=== PATIENT | female | born 1945 | race Caucasian/White ===

== ENCOUNTER 2022-01-13 10:17 | Day surgery (SDC) | payer MEDICARE ==
[2022-01-13] MEDS ORDERED: Propofol 200 MG/20 ML SDV IV ONE (10:18)
[2022-01-13] MEDS ORDERED: Sodium Chloride 0.9% 10 ML Syringe FLUSH PRN (10:30)
[2022-01-13] MEDS: Lactated Ringers 1,000 ML IV SCH (10:39)
[2022-01-13] MEDS ORDERED: Propofol 200 MG/20 ML SDV ONE ×2 (10:46→11:26)
[2022-01-13] MEDS ORDERED: Midazolam 1 MG/ML 2 ML SDV ONE (10:46)
[2022-01-13 12:51] VITALS: BP 164/65; PULSE 61
== END 2022-01-13 13:13 | disposition home or self-care (01) ==
LOC: KA.SDS 10:17
PROVIDERS: ATTEND Surgery
DX: D12.2 Benign neoplasm of ascending colon (principal); F41.9 Anxiety disorder, unspecified; I10 Essential (primary) hypertension; E78.5 Hyperlipidemia, unspecified; K21.9 Gastro-esophageal reflux disease without esophagitis; H90.5 Unspecified sensorineural hearing loss; D64.9 Anemia, unspecified; Z88.8 Allergy status to other drugs, medicaments and biological substances; Z88.0 Allergy status to penicillin; Z91.040 Latex allergy status; Z79.899 Other long term (current) drug therapy; Z98.890 Other specified postprocedural states
CPT/HCPCS: J2250; J2704; J7120

== ENCOUNTER 2022-02-11 16:50 | Emergency (ER) | payer MEDICARE ==
[2022-02-11] MEDS ORDERED: Sodium Chloride 0.9% 10 ML Syringe FLUSH PRN (16:59)
[2022-02-11 18:00] LABS: ANION GAP 13.1 mmol/L (5-15); CHLORIDE,CL 106 mmol/L (98-107); SODIUM,NA 144 mmol/L (136-145)
[2022-02-11] MEDS ORDERED: Hydrochlorothiazide 25 MG Tab PO ONE (18:54)
[2022-02-11 19:07] VITALS: BP 145/81; PULSE 65
== END 2022-02-11 19:26 | disposition home or self-care (01) ==
LOC: KA.ED 16:50
DX: F41.9 Anxiety disorder, unspecified (principal); E87.6 Hypokalemia; I10 Essential (primary) hypertension; R79.89 Other specified abnormal findings of blood chemistry; E78.00 Pure hypercholesterolemia, unspecified; Z88.0 Allergy status to penicillin; Z88.1 Allergy status to other antibiotic agents; Z79.899 Other long term (current) drug therapy
CPT/HCPCS: 36415; 71045; 80053; 83880; 84484; 85025; 93005; 93010; 99284; 99285-25; A9270-GY

== ENCOUNTER 2022-03-14 17:22 | Emergency (ER) | payer MEDICARE ==
[2022-03-14] MEDS: cloNIDine 0.1 MG Tab PO ONE (18:26)
[2022-03-14 18:28] LABS: ANION GAP 11.4 mmol/L (5-15); CHLORIDE,CL 105 mmol/L (98-107); SODIUM,NA 141 mmol/L (136-145)
[2022-03-14] MEDS: Losartan 50 MG Tab PO ONE (18:36)
[2022-03-14] MEDS: Labetalol 100 MG/20 ML MDV IVPUSH ONE (18:38)
[2022-03-14] MEDS: Sodium Chloride 0.9% 500 ML IV ONE (20:23)
[2022-03-14 21:55] VITALS: BP 125/48; PULSE 47
== END 2022-03-14 22:00 | disposition home or self-care (01) ==
LOC: KA.ED 17:22
DX: R00.1 Bradycardia, unspecified (principal); I10 Essential (primary) hypertension; E78.00 Pure hypercholesterolemia, unspecified; K21.9 Gastro-esophageal reflux disease without esophagitis; Z88.1 Allergy status to other antibiotic agents; Z88.0 Allergy status to penicillin; Z91.040 Latex allergy status; Z79.899 Other long term (current) drug therapy
CPT/HCPCS: 36415; 80048; 83735; 84484; 85025; 99283-25; 99284; A9270-GY; J3490; J7030

== ENCOUNTER 2024-12-25 11:36 | Emergency (ER) | payer MEDICARE ==
[2024-12-25 12:06] LABS: BASOPHILS ABSOLUTE AUTO 0.04 10^3/uL (0.00-0.10); BASOPHILS PERCENT AUTO 0.5 % (0.0-1.0); EOSINOPHILS ABSOLUTE AUTO 0.13 10^3/uL (0.10-0.30); EOSINOPHILS PERCENT AUTO 1.8 % (1.0-3.0); HEMATOCRIT 42.7 % (37.0-47.0); HEMOGLOBIN 14.1 g/dL (12.0-16.0); LYMPHOCYTES ABSOLUTE AUTO 2.86 10^3/uL (1.00-4.00); LYMPHOCYTES PERCENT AUTO 38.8 % (20.0-40.0); MEAN CORPUSCULAR HEMOGLOBIN 30.6 pg (27.0-31.0); MEAN CORPUSCULAR VOLUME 92.6 fL (82.0-92.0); MEAN PLATELET VOLUME 11.3 fL (7.4-10.4); MONOCYTES ABSOLUTE AUTO 1.03 10^3/uL (0.10-0.80); NEUTROPHILS ABSOLUTE AUTO 3.32 10^3/uL (2.50-7.00); NEUTROPHILS PERCENT AUTO 44.9 % (50.0-70.0); PLATELET COUNT,PLT 165 10^3/uL (150-400); RED BLOOD CELL COUNT 4.61 10^6/uL (3.80-5.50); RED CELL DISTRIBUTION WIDTH 12.3 % (11.5-14.5); WHITE BLOOD CELL COUNT,WBC 7.38 10^3/uL (5.00-10.00)
[2024-12-25 12:24] LABS: ALANINE AMINOTRANSFERASE,ALT 22 U/L (14-63); ALBUMIN 4.25 g/dL (3.40-5.00); ALKALINE PHOSPHATASE 50 U/L (46-116); ANION GAP 13.2 mmol/L (5-15); ASPARTATE AMNIOTRANSFERASE,AST 18 U/L (15-37); BILIRUBIN TOTAL 0.4 mg/dL (0.2-1.0); BLOOD UREA NITROGEN,BUN 18 mg/dL (7-18); CARBON DIOXIDE,CO2 30.5 mmol/L (21.0-32.0); CHLORIDE,CL 101 mmol/L (98-107); CREATININE 0.71 mg/dL (0.51-1.17); ESTIMATED GFR 87 mL/min (>=60); GLUCOSE RANDOM 113 mg/dL (70-140); POTASSIUM,K 3.7 mmol/L (3.5-5.1); PROTEIN TOTAL,TP 8.2 g/dL (6.4-8.2); SODIUM,NA 141 mmol/L (136-145)
[2024-12-25 12:28] LABS: PROTHROMBIN TIME 10.4 SEC (9.1-12.0)
[2024-12-25] MEDS: hydrALAZINE 20 MG/ML SDV IVPUSH ONE ×2 (12:43→15:55)
[2024-12-25 13:00] LABS: APPEARANCE,URINE CLEAR (CLEAR); BILIRUBIN,URINE NEGATIVE (NEGATIVE); COLOR,URINE YELLOW (YELLOW); GLUCOSE,URINE NEGATIVE (NEGATIVE); KETONES,URINE NEGATIVE (NEGATIVE); LEUKOCYTE ESTERASE,URINE NEGATIVE (NEGATIVE); NITRITE,URINE NEGATIVE (NEGATIVE); OCCULT BLOOD,URINE NEGATIVE (NEGATIVE); PROTEIN,URINE NEGATIVE (NEGATIVE); UROBILINOGEN,URINE 0.2 E.U./dL (0.2-1.0)
[2024-12-25 13:01] LABS: BACTERIA,URINE RARE /HPF (NONE TO FEW); EPITHELIAL CELLS,URINE RARE /LPF; RBC,URINE 0-5 /HPF (0-5); WBC,URINE 0-5 /HPF (0-5)
[2024-12-25 15:53] VITALS: BP 143/88; PULSE 76
== END 2024-12-25 14:48 | disposition home or self-care (01) ==
LOC: KA.ED 11:36
DX: I10 Essential (primary) hypertension (principal); E78.00 Pure hypercholesterolemia, unspecified; Z88.1 Allergy status to other antibiotic agents; Z91.040 Latex allergy status; Z88.8 Allergy status to other drugs, medicaments and biological substances; Z88.0 Allergy status to penicillin; Z79.899 Other long term (current) drug therapy; Z86.16 Personal history of COVID-19
CPT/HCPCS: 36415; 71045; 80053; 81001; 84484; 85025; 85610; 93005; 93010; 96374; 99284; 99285-25; J0360

== ENCOUNTER 2024-12-25 17:48 | Inpatient (IN) | payer MEDICARE ==
[2024-12-25 18:30] LABS: BASOPHILS ABSOLUTE AUTO 0.05 10^3/uL (0.00-0.10); BASOPHILS PERCENT AUTO 0.6 % (0.0-1.0); EOSINOPHILS ABSOLUTE AUTO 0.14 10^3/uL (0.10-0.30); EOSINOPHILS PERCENT AUTO 1.6 % (1.0-3.0); HEMATOCRIT 40.9 % (37.0-47.0); HEMOGLOBIN 13.7 g/dL (12.0-16.0); IMMATURE GRAN ABSOLUTE AUTO 0.01 10^3/uL (0.00-0.04); IMMATURE GRAN PERCENT AUTO 0.1 % (0.0-0.4); LYMPHOCYTES ABSOLUTE AUTO 3.05 10^3/uL (1.00-4.00); LYMPHOCYTES PERCENT AUTO 35.2 % (20.0-40.0); MEAN CORPUSCULAR HEMOGLOBIN 30.8 pg (27.0-31.0); MEAN CORPUSCULAR HGB CONC 33.5 g/dL (32.0-36.0); MEAN CORPUSCULAR VOLUME 91.9 fL (82.0-92.0); MEAN PLATELET VOLUME 11.2 fL (7.4-10.4); MONOCYTES ABSOLUTE AUTO 1.19 10^3/uL (0.10-0.80); MONOCYTES PERCENT AUTO 13.7 % (2.0-8.0); NEUTROPHILS ABSOLUTE AUTO 4.23 10^3/uL (2.50-7.00); NEUTROPHILS PERCENT AUTO 48.8 % (50.0-70.0); PLATELET COUNT,PLT 188 10^3/uL (150-400); RED BLOOD CELL COUNT 4.45 10^6/uL (3.80-5.50); RED CELL DISTRIBUTION WIDTH 12.4 % (11.5-14.5); WHITE BLOOD CELL COUNT,WBC 8.67 10^3/uL (5.00-10.00)
[2024-12-25 18:37] LABS: ALBUMIN 4.11 g/dL (3.40-5.00); ANION GAP 12.1 mmol/L (5-15); BILIRUBIN TOTAL 0.4 mg/dL (0.2-1.0); CALCIUM 9.6 mg/dL (8.7-10.3); CARBON DIOXIDE,CO2 29.3 mmol/L (21.0-32.0); CREATININE 0.73 mg/dL (0.51-1.17); EST CRCL DRUG DOSING (CG) 52.54 mL/min; POTASSIUM,K 3.4 mmol/L (3.5-5.1); PROTEIN TOTAL,TP 7.8 g/dL (6.4-8.2)
[2024-12-25] MEDS: Sodium Chloride 0.9% 10 ML Syringe FLUSH PRN (20:35)
[2024-12-26] MEDS ORDERED: Ondansetron 4 MG/2 ML SDV IV PRN (01:12)
[2024-12-26] MEDS ORDERED: ALPRAZolam 0.25 MG Tab PO PRN (01:15)
[2024-12-26] MEDS: Potassium Chloride 20 MEQ Tab.ER PO ONE (02:08)
[2024-12-26] MEDS: metroNIDAZOLE 500 MG Tab PO SCH (02:08)
[2024-12-26] MEDS: Pantoprazole 20 MG Tab, Delayed Release PO SCH (06:14)
[2024-12-26] MEDS: Sodium Chloride 0.9% 50 ML IV ONE (07:34)
[2024-12-26 07:35] LABS: BASOPHILS ABSOLUTE AUTO 0.04 10^3/uL (0.00-0.10); BASOPHILS PERCENT AUTO 0.6 % (0.0-1.0); EOSINOPHILS ABSOLUTE AUTO 0.16 10^3/uL (0.10-0.30); EOSINOPHILS PERCENT AUTO 2.2 % (1.0-3.0); HEMATOCRIT 39.9 % (37.0-47.0); HEMOGLOBIN 13.2 g/dL (12.0-16.0); LYMPHOCYTES ABSOLUTE AUTO 1.91 10^3/uL (1.00-4.00); LYMPHOCYTES PERCENT AUTO 26.3 % (20.0-40.0); MEAN CORPUSCULAR HEMOGLOBIN 30.8 pg (27.0-31.0); MEAN CORPUSCULAR HGB CONC 33.1 g/dL (32.0-36.0); MEAN PLATELET VOLUME 11.4 fL (7.4-10.4); MONOCYTES ABSOLUTE AUTO 1.07 10^3/uL (0.10-0.80); MONOCYTES PERCENT AUTO 14.8 % (2.0-8.0); NEUTROPHILS ABSOLUTE AUTO 4.07 10^3/uL (2.50-7.00); NEUTROPHILS PERCENT AUTO 56.1 % (50.0-70.0); PLATELET COUNT,PLT 177 10^3/uL (150-400); RED BLOOD CELL COUNT 4.29 10^6/uL (3.80-5.50); RED CELL DISTRIBUTION WIDTH 12.5 % (11.5-14.5); WHITE BLOOD CELL COUNT,WBC 7.25 10^3/uL (5.00-10.00)
[2024-12-26] MEDS: Iopamidol 755 Mg/ML 100 ML Bottle IV ONE (07:35)
[2024-12-26 08:00] LABS: ALBUMIN 3.76 g/dL (3.40-5.00); ANION GAP 11.2 mmol/L (5-15); BILIRUBIN TOTAL 0.5 mg/dL (0.2-1.0); CALCIUM 9.5 mg/dL (8.7-10.3); CARBON DIOXIDE,CO2 31.3 mmol/L (21.0-32.0); CREATININE 0.69 mg/dL (0.51-1.17); EST CRCL DRUG DOSING (CG) 55.58 mL/min; MAGNESIUM 2.1 mg/dL (1.8-2.4); POTASSIUM,K 4.5 mmol/L (3.5-5.1); PROTEIN TOTAL,TP 7.3 g/dL (6.4-8.2); TSH ULTRASENSITIVE 4.05 uIU/mL (0.340-4.820)
[2024-12-26] MEDS: Magnesium Oxide 500 MG Tab PO SCH (08:53)
[2024-12-26] MEDS: Enoxaparin 40 MG/0.4 ML Syringe SUBCUT SCH (08:54)
[2024-12-26] MEDS: Hydrochlorothiazide 12.5 MG Cap PO SCH (08:54)
[2024-12-26] MEDS: VALSARTAN 320 MG PO SCH (08:55)
[2024-12-26] MEDS ORDERED: hydrALAZINE 20 MG/ML SDV IVPUSH PRN (12:44)
[2024-12-26] MEDS: amLODIPine 5 MG Tab PO SCH (13:29)
[2024-12-26] MEDS: Gadobenate Dimeglumine 529 MG/ML 15 ML SDV IVPUSH ONE (13:40)
[2024-12-26] MEDS: Docusate Sodium 100 MG Cap PO PRN (23:47)
[2024-12-27 10:00] LABS: HEMATOCRIT 43.2 % (37.0-47.0); MEAN CORPUSCULAR HEMOGLOBIN 30.4 pg (27.0-31.0); MEAN CORPUSCULAR HGB CONC 32.4 g/dL (32.0-36.0); MEAN CORPUSCULAR VOLUME 93.7 fL (82.0-92.0); MEAN PLATELET VOLUME 11.3 fL (7.4-10.4); PLATELET COUNT,PLT 196 10^3/uL (150-400); RED BLOOD CELL COUNT 4.61 10^6/uL (3.80-5.50); RED CELL DISTRIBUTION WIDTH 12.5 % (11.5-14.5); WHITE BLOOD CELL COUNT,WBC 5.58 10^3/uL (5.00-10.00)
[2024-12-27] MEDS: [UNRECOGNIZED DRUG - MIXTURE] PO SCH (10:13)
[2024-12-27 10:15] LABS: ANION GAP 14.2 mmol/L (5-15); CALCIUM 9.2 mg/dL (8.7-10.3); CARBON DIOXIDE,CO2 29.2 mmol/L (21.0-32.0); CREATININE 0.69 mg/dL (0.51-1.17); EST CRCL DRUG DOSING (CG) 55.58 mL/min; POTASSIUM,K 3.4 mmol/L (3.5-5.1)
[2024-12-28] MEDS: Acetaminophen/HYDROcodone 325-5 MG Tab PO PRN (04:02)
[2024-12-28] MEDS: Acetaminophen 325 MG Tab PO PRN (08:38)
[2024-12-28] MEDS: Fluconazole 100 MG Tab PO SCH (08:46)
[2024-12-28 09:20] LABS: BASOPHILS ABSOLUTE AUTO 0.05 10^3/uL (0.00-0.10); BASOPHILS PERCENT AUTO 0.7 % (0.0-1.0); EOSINOPHILS ABSOLUTE AUTO 0.24 10^3/uL (0.10-0.30); EOSINOPHILS PERCENT AUTO 3.2 % (1.0-3.0); HEMATOCRIT 45.2 % (37.0-47.0); HEMOGLOBIN 14.8 g/dL (12.0-16.0); IMMATURE GRAN ABSOLUTE AUTO 0.01 10^3/uL (0.00-0.04); IMMATURE GRAN PERCENT AUTO 0.1 % (0.0-0.4); LYMPHOCYTES ABSOLUTE AUTO 2.91 10^3/uL (1.00-4.00); LYMPHOCYTES PERCENT AUTO 38.3 % (20.0-40.0); MEAN CORPUSCULAR HEMOGLOBIN 30.5 pg (27.0-31.0); MEAN CORPUSCULAR HGB CONC 32.7 g/dL (32.0-36.0); MEAN CORPUSCULAR VOLUME 93.2 fL (82.0-92.0); MONOCYTES ABSOLUTE AUTO 0.91 10^3/uL (0.10-0.80); NEUTROPHILS ABSOLUTE AUTO 3.47 10^3/uL (2.50-7.00); NEUTROPHILS PERCENT AUTO 45.7 % (50.0-70.0); PLATELET COUNT,PLT 225 10^3/uL (150-400); RED BLOOD CELL COUNT 4.85 10^6/uL (3.80-5.50); RED CELL DISTRIBUTION WIDTH 12.3 % (11.5-14.5); WHITE BLOOD CELL COUNT,WBC 7.59 10^3/uL (5.00-10.00)
[2024-12-28 09:47] LABS: ALBUMIN 4.08 g/dL (3.40-5.00); ANION GAP 13.9 mmol/L (5-15); BILIRUBIN TOTAL 0.4 mg/dL (0.2-1.0); CALCIUM 9.5 mg/dL (8.7-10.3); CARBON DIOXIDE,CO2 30.6 mmol/L (21.0-32.0); CREATININE 0.67 mg/dL (0.51-1.17); EST CRCL DRUG DOSING (CG) 57.24 mL/min; POTASSIUM,K 3.5 mmol/L (3.5-5.1); PROTEIN TOTAL,TP 8.2 g/dL (6.4-8.2)
[2024-12-28] MEDS: Ibuprofen 400 MG Tab PO PRN (13:47)
[2024-12-28] MEDS: METHENAMINE PO SCH (22:03)
[2024-12-28] MEDS: SODIUM SALICYLATE PO SCH (22:03)
[2024-12-29 11:44] VITALS: BP 135/71; PULSE 76
== END 2024-12-29 15:35 | disposition swing bed (61) | DRG 312 ==
LOC: KA.ED 17:48 → KA.MS 22:21
PROVIDERS: ADMIT Internal Medicine; ATTEND Hospitalist
DX: R55 Syncope and collapse (principal); M62.81 Muscle weakness (generalized); R56.9 Unspecified convulsions; H54.7 Unspecified visual loss; K86.3 Pseudocyst of pancreas; K59.09 Other constipation; I10 Essential (primary) hypertension; G43.909 Migraine, unspecified, not intractable, without status migrainosus; Z96.619 Presence of unspecified artificial shoulder joint; H91.90 Unspecified hearing loss, unspecified ear; E87.6 Hypokalemia; I20.9 Angina pectoris, unspecified; R32 Unspecified urinary incontinence; E78.00 Pure hypercholesterolemia, unspecified; K21.9 Gastro-esophageal reflux disease without esophagitis; Z88.0 Allergy status to penicillin; Z88.1 Allergy status to other antibiotic agents; Z88.8 Allergy status to other drugs, medicaments and biological substances; Z91.040 Latex allergy status; Z98.49 Cataract extraction status, unspecified eye; Z79.899 Other long term (current) drug therapy; Z86.16 Personal history of COVID-19; Z90.710 Acquired absence of both cervix and uterus
CPT/HCPCS: 36415; 70450; 70553; 71045; 74177; 80048; 80053; 81001; 83690; 83735; 84443; 84484; 85025; 85027; 85610; 87428-QW; 93005; 93010; 93306; 93880; 96374; 97165-GO; 99223-GT; 99232-GT; 99233-GT; 99239-GT; 99284; 99285; 99285-25; A9270-GY; A9577; J0360; J1650; J3490; Q3014; Q9967

== ENCOUNTER 2024-12-28 14:22 | Inpatient (IN) | payer MEDICARE ==
[2024-12-29] MEDS ORDERED: Polyethylene Glycol 3350 Powder 17 GM Packet PO PRN (15:43)
[2024-12-29] MEDS ORDERED: Acetaminophen 325 MG Tab PO PRN ×2 (15:43→18:01)
[2024-12-29] MEDS ORDERED: Ondansetron 4 MG Tab.DIS PO PRN (15:43)
[2024-12-29] MEDS ORDERED: hydrALAZINE 20 MG/ML SDV IVPUSH PRN (18:01)
[2024-12-29] MEDS: metroNIDAZOLE 500 MG Tab PO SCH (21:39)
[2024-12-29] MEDS: SODIUM SALICYLATE PO SCH (21:41)
[2024-12-29] MEDS: METHENAMINE PO SCH (21:41)
[2024-12-30] MEDS: Pantoprazole 40 MG Tab.CR PO SCH (06:31)
[2024-12-30] MEDS: Ibuprofen 400 MG Tab PO PRN (08:00)
[2024-12-30] MEDS ORDERED: UBIDECARENONE 100 MG PO SCH (09:00)
[2024-12-30] MEDS ORDERED: Enoxaparin 40 MG/0.4 ML Syringe SUBCUT SCH (09:00)
[2024-12-30] MEDS: Enoxaparin 40 MG/0.4 ML Syringe SUBCUT SCH (09:27)
[2024-12-30] MEDS: amLODIPine 5 MG Tab PO SCH (09:28)
[2024-12-30] MEDS: Magnesium Oxide 500 MG Tab PO SCH (09:28)
[2024-12-30] MEDS: Hydrochlorothiazide 12.5 MG Cap PO SCH (09:28)
[2024-12-30] MEDS: VALSARTAN 320 MG PO SCH (09:30)
[2024-12-30] MEDS: Acetaminophen/HYDROcodone 325-5 MG Tab PO PRN (20:46)
[2024-12-31] MEDS: ALPRAZolam 0.25 MG Tab PO PRN (00:40)
[2024-12-31] MEDS: Hydrocortisone 2.5% Crm 30 GM Tube TOP PRN (21:57)
[2025-01-01] MEDS ORDERED: ALPRAZolam 0.25 MG Tab PO PRN (08:45)
[2025-01-01] MEDS: Docusate Sodium 100 MG Cap PO PRN (19:38)
[2025-01-02 14:55] VITALS: BP 142/63; PULSE 72
[2025-01-04] MEDS ORDERED: Fluconazole 100 MG Tab PO SCH (09:00)
== END 2025-01-02 14:45 | disposition home or self-care (01) | DRG 948 ==
LOC: KA.MS 12-29 15:35
PROVIDERS: ADMIT Internal Medicine; ATTEND Internal Medicine
DX: R53.81 Other malaise (principal); Z66 Do not resuscitate; I10 Essential (primary) hypertension; R26.9 Unspecified abnormalities of gait and mobility
CPT/HCPCS: 93246; 97110-GO; 97535-GO; 99316-GT; A9270-GY; J1650; Q3014

== ENCOUNTER 2025-04-05 15:04 | Observation (INO) | payer MEDICARE ==
[2025-04-05] MEDS ORDERED: Acetaminophen 325 MG Tab PO PRN (16:06)
[2025-04-05] MEDS: Lactated Ringers 1,000 ML IV SCH (16:55)
[2025-04-05] MEDS: Magnesium Hydroxide 400 MG/5 ML Susp 30 ML Cup PO SCH ×2 (16:57→20:30)
[2025-04-05] MEDS: Pantoprazole 40 MG Vial IVPUSH SCH (16:57)
[2025-04-05] MEDS: Sennosides/Docusate Sodium 50-8.6 MG Tab PO SCH (16:57)
[2025-04-05] MEDS: Metoclopramide 10 MG/2 ML SDV IV SCH (16:57)
[2025-04-05] MEDS: amLODIPine 5 MG Tab PO SCH (16:57)
[2025-04-05] MEDS: Bisacodyl 5 MG Tab PO SCH (16:57)
[2025-04-05] MEDS: hydrALAZINE 20 MG/ML SDV IVPUSH PRN (17:34)
[2025-04-06 07:53] LABS: BASOPHILS ABSOLUTE AUTO 0.04 10^3/uL (0.00-0.10); BASOPHILS PERCENT AUTO 0.7 % (0.0-1.0); EOSINOPHILS PERCENT AUTO 3.6 % (1.0-3.0); HEMATOCRIT 40.7 % (37.0-47.0); HEMOGLOBIN 13.4 g/dL (12.0-16.0); LYMPHOCYTES ABSOLUTE AUTO 1.87 10^3/uL (1.00-4.00); MEAN CORPUSCULAR HEMOGLOBIN 31.2 pg (27.0-31.0); MEAN CORPUSCULAR HGB CONC 32.9 g/dL (32.0-36.0); MEAN CORPUSCULAR VOLUME 94.7 fL (82.0-92.0); MEAN PLATELET VOLUME 11.1 fL (7.4-10.4); MONOCYTES ABSOLUTE AUTO 0.63 10^3/uL (0.10-0.80); MONOCYTES PERCENT AUTO 11.5 % (2.0-8.0); NEUTROPHILS ABSOLUTE AUTO 2.76 10^3/uL (2.50-7.00); NEUTROPHILS PERCENT AUTO 50.2 % (50.0-70.0); PLATELET COUNT,PLT 183 10^3/uL (150-400); RED CELL DISTRIBUTION WIDTH 12.4 % (11.5-14.5)
[2025-04-06 08:09] LABS: ALBUMIN 3.75 g/dL (3.40-5.00); ANION GAP 9.6 mmol/L (5-15); BILIRUBIN TOTAL 0.7 mg/dL (0.2-1.0); CALCIUM 9.5 mg/dL (8.7-10.3); CARBON DIOXIDE,CO2 30.3 mmol/L (21.0-32.0); CREATININE 0.65 mg/dL (0.51-1.17); EST CRCL DRUG DOSING (CG) 56.42 mL/min; POTASSIUM,K 3.9 mmol/L (3.5-5.1); PROTEIN TOTAL,TP 7.5 g/dL (6.4-8.2)
[2025-04-06] MEDS: VALSARTAN 320 MG PO SCH (09:12)
[2025-04-06 11:09] VITALS: BP 157/69; PULSE 72
== END 2025-04-06 11:10 | disposition home or self-care (01) ==
LOC: KA.MS 15:04
PROVIDERS: ADMIT Internal Medicine; ATTEND Internal Medicine
DX: K56.7 Ileus, unspecified (principal); I16.0 Hypertensive urgency; I10 Essential (primary) hypertension; E78.00 Pure hypercholesterolemia, unspecified; Z88.8 Allergy status to other drugs, medicaments and biological substances; Z88.0 Allergy status to penicillin; Z91.040 Latex allergy status; Z79.899 Other long term (current) drug therapy
CPT/HCPCS: 36415; 80053; 85025; 96374; 96375; 96376; A9270-GY; G0378; J0360; J2470; J2765; J7120; Q3014